=== PATIENT | female | born 1955 | race Caucasian/White ===

== ENCOUNTER 2018-11-19 14:01 | Emergency (ER) | payer BC, SELFPAY ==
[2018-11-19] VITALS (34 sets, daily range): BP systolic 88–111; BP diastolic 49–74; PULSE 60–74; RESP 8–23; TEMP 36.8; O2SAT 90–99
--- NOTE | 2018-11-19 14:40 | W.ED.GENAD ---
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 If you notice any worsening of your symptoms, or any new symptoms such as vomiting, diarrhea, fever, chills, shortness of breath, chest pain, numbness, weakness, or fainting , please return immediately to the emergency department for reevaluation. Please follow up with your primary care provider as soon as possible for reassessment and reevaluation. As always, it was a pleasure participating in your medical care today. Discharge Data Discharge Date/Time-TO BE ENTERED AT DEPARTURE: 11/19/18 20:05 Medical Decision Making <Ganga Chiu MD - Last Filed: 11/19/18 14:42> ECG Data Attestation: I personally reviewed and interpreted this ECG (s) as follows: Prior ECG tracings: not available for review Interpretation: sinus rhythm, rate of 70, pr 174, no acute st t wave ischemic findings <Catalino Faria NP - Last Filed: 11/24/18 11:35> Patient presenting to the emergency department for chief complaint of generalized malaise, not feeling well, and very slight abdominal discomfort. Patient reports on evening she had a funny tasting beef for dinner and then and about 6 hours or so she developed diffuse hives. These self resolved except for occasional intermittent persistent hives that she shows me are on her right shoulder. Patient otherwise states some GI discomfort since this episode and not feeling well. 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 Patient denies fever or chills focal abdominal tenderness, or vomiting. She does report to staff development coordinator rn upon check-in that she had chest pain and was worried about silent AL. 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 She does state that approximately 2 weeks ago she had bilateral lower extremity edema that seems to have resolved but that was odd for her. Physical exam shows a small single area that appears like a hive on left shoulder, clear lung sounds with no wheezing, stridor, normal cardiac exam, obese but nontender abdomen with normal active bowel sounds, no peritoneal findings, nonsurgical abdomen. Patient has no lower extremity edema. Given patient reporting to staff development coordinator rn I do feel that EKG and ACS work-up is appropriate. Patient does state concern for alpha gal reaction to eating meat to given that she had reported hives approximately 6 hours after eating beef. Plan to check labs, give IV access, chest x-ray. Patient otherwise states that when she has generalized malaise and has presented to the emergency department there is no treatment that helps her except for alternative medicine. Initial review of labs is non-worrisome and shows only a very mildly low albumin otherwise negative initial troponin, BNP within normal limits, normal chest x-ray, please see below for attending physician interpretation of EKG which is non-worrisome. Did speak to patient about allergic reaction and possible alpha gal reaction that she is concerned about given eating beef and 6 hours later developing hives. She states that she Frank contacted her primary care provider who was willing to call in a prescription for a EpiPen. At this time I see no acute signs of anaphylactic reaction. Patient states that she will fill this at the pharmacy and is not concerned about getting one in the emergency department. Otherwise patient was encouraged to avoid intake of beef products until further testing can be done which she states she will get at her primary care office. Plan to do a second troponin for full evaluation of patient's complaint of chest pain but otherwise patient remained stable. <Jose Contreras, - Last Filed: 11/20/18 11:34> Case was signed out to me by my colleague Catalino Faria. Repeat serial troponins were within normal limits, repeat EKG was unchanged. Patient continues to remain asymptomatic at this time and feels very well. Bedside limited cardiac echocardiogram demonstrates minimal trace pericardial effusion, no evidence of pericardial tamponade whatsoever. Ejection fraction appears to be within normal limits. No significant abnormality noted on limited bedside echocardiogram. Chest x-ray results demonstrate no acute finding per virtual radiology. Patient's vital signs remain normal with normal oxygenation, no tachycardia, no hypotension. Although oxygen saturations were initially documented at 90% and 92%, this is an accurate. I spent over an hour and a half in the room with the patient discussing her work-up, findings, and various etiologies of her symptoms, and during that time the patient's O2 saturations remain consistently between 95 and 99%. We did get an incentive spirometer, and she demonstrated notable and excellent lung volumes greater than 1 L. Physical exam continues to demonstrate no signs of anaphylaxis, and unremarkable abdominal exam, no edema of her lower extremities, no evidence of significant right heart strain on laboratory or cardiac work-up, no signs of hemodynamic compromise. At this time the patient signs and symptoms are clinically inconsistent with ACS, massive PE, pneumothorax, severe pneumonia, arteries, respiratory failure, anaphylaxis, life-threatening abdominal pathology, or life-threatening cardiac pathology. 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 We discussed alternative treatments, prolonged stays in various other forms of work-up, and together respecting the patient's wishes we feel that she is notably clinically safe for discharge with prompt follow-up. Spent a long time discussing with the patient reason for which to immediately return, and addressed all concerns that were brought up. I have extensively reviewed the treatment plan and discharge instructions with the patient. I have addressed all patient concerns at this time. The patient was made aware of what symptoms to monitor for that would warrant a return to the emergency department. Discussed the plan with the patient, they demonstrate verbal understanding and agreement with our assessment and plan at this time. EKG 14: 13 Rate 70, intervals normal, sinus rhythm, nonspecific T wave abnormality in V1 V2, with slight inversion. Questionable minimal Q waves in lead III. Findings are unchanged COMPARISON: No relevant prior studies available. FINDINGS: Lungs: No significant consolidation. Pleural space: No pleural effusion. No pneumothorax. Heart/Mediastinum: No significant cardiomegaly. Bones/joints: Unremarkable for age. IMPRESSION: No acute findings. Dictated and Authenticated by: Stuart Asif MD. Ordering:AMRIK Bae MD HPI <Ganga Chiu MD - Last Filed: 11/19/18 14:42> General Date/Time Provider Initiated Documentation: 11/19/18 14:02. <Catalino Faria NP - Last Filed: 11/24/18 11:35> General Mode of arrival: ambulatory. Limitations to Documentation: no limitations. Information obtained by: patient and RN notes reviewed. History of Present Illness 62 year old F presents to the emergency department with the chief complaint of Generalized malaise, abdominal pain, described as mild, with intensity rated at 1. Quality is described as aching, and is localized to the abdomen. Patient started experiencing this day(s) (3) and it has been constant. No relieving factors improve symptom(s), Other factors that worsen symptoms (Eating red meat) . Patient did receive the following treatments prior to arrival, none General Stated Complaint: Chest Pain KEN: 3 <Catalino Faria NP - Last Filed: 11/24/18 11:35> Constitutional Reports body ache(s), Denies chills, Denies fever(s), Denies headache(s) and Reports malaise ENT Denies headache(s) Cardiovascular Denies chest pain, Denies syncope, Reports pedal edema (Now resolved) and Denies dyspnea Respiratory Reports cough (dry) and Denies dyspnea Gastrointestinal Reports abdominal pain, Reports diarrhea, Denies nausea and Denies vomiting Integumentary/Breasts Reports rash Neurologic Denies syncope, Denies headache(s) and Reports other (Denies focal neurological change) [facility] <Ganga Chiu MD - Last Filed: 11/19/18 14:42> Social History Smoking/Tobacco Use Status: Never Do you feel safe at home: Yes Do you feel safe in your relationship?: Yes <Catalino Faria NP - Last Filed: 11/24/18 11:35> Const General: cooperative, no acute distress, not diaphoretic and not ill appearing Orientation: alert, awake and oriented x3 Neck Neck: normal visual inspection, full ROM, trachea midline, supple and no anterior neck swelling Carotids: normal carotid upstroke and no bruits Resp Effort & Inspection: normal respiratory effort, able to speak in complete sentences and stridor Auscultation: clear to auscultation bilaterally Cardio Rate: regular rate Rhythm: regular rhythm Heart Sounds: S1 normal, S2 normal, no click, no gallops, no murmurs and no rubs Bruits: no abdominal aortic bruits and no carotid bruits GI Inspection: normal to inspection and obesity Palpation: soft, no aortic enlargement, no pulsatile masses and nontender Auscultation: normal bowel sounds Back/Spine/Pelvis Back: no CVA tenderness Skin General skin exam: other (Small hive noted to left shoulder) Neuro General: alert, awake, oriented x3, tone normal and moves all extremities <Catalino Faria NP - Last Filed: 11/24/18 11:35> Vital Signs Temperature 36.8 C 11/19/18 14:05 Pulse 70 11/19/18 14:05 Blood Pressure 109/74 11/19/18 14:05 Temperature 36.8 C 11/19/18 14:05 Temperature Source Temporal Artery Scan 11/19/18 14:05 Pulse 70 11/19/18 14:05 Blood Pressure 109/74 11/19/18 14:05 Blood Pressure Position Supine 11/19/18 14:05 Oxygen Delivery Method Room Air 11/19/18 14:05 Oxygen Flow Rate 0 11/19/18 14:05 Sign Out <Ganga Chiu MD - Last Filed: 11/19/18 14:42> Sign Out Data: Sign Out Comment: Pending second troponin, reassessment, and any further treatment as needed patient signed out to Dr. Contreras. Last updated by Catalino Faria NP at 11/19/18 16:23
[2018-11-19 14:56] LABS: Abs Immature Grans 0.01 k/cumm (0.0-0.09); Absolute Basophil Count 0.04 k/cumm (0.0-0.2); Absolute Eosinophil Count 0.29 k/cumm (0.0-0.7); Absolute Lymphocyte Count 2.08 k/cumm (1.2-3.4); Absolute Monocyte Count 0.48 k/cumm (0.11-0.7); Absolute Neutrophil Count 3.66 k/cumm (1.2-6.7); Basophils % 0.6; Eosinophils % 4.4; HCT 39.5 % (36.0-46.0); HGB 13.4 g/dL (12.0-15.5); Immature Grans % 0.2; Lymphocytes % 31.7; Mean Corp. HGB Concentration 33.9 g/dL (32.0-36.0); Mean Corpuscular Hemoglobin 31.2 pg (27.0-33.0); Mean Corpuscular Volume 92.1 fL (80-95); Mean Platelet Volume 10.8 fL (8.0-11.0); Monocytes % 7.3; Neutrophils % 55.8; Platelet Count 250 x1000/uL (130-400); RBC 4.29 m/cumm (4.00-5.20); RBC Distribution Width 13.2 % (11.7-14.6); White Blood Cell Count 6.56 k/cumm (4.4-10.8)
--- NOTE | 2018-11-19 15:00 | DI.RAD_ITS ---
SYMPTOM/DIAGNOSIS: COUGH PA AND LATERAL CHEST: There are no prior comparison exams. The heart size is normal. There is no mediastinal widening. The lungs are reasonably well inflated and appear clear. Leads overlie the chest. IMPRESSION: Negative chest x-ray
[2018-11-19 15:10] LABS: INR 0.9 (0.9-1.1); PTT Activated 20.5 sec (21.0-31.4); Prothrombin Time 9.3 sec (9.3-11.0)
--- NOTE | 2018-11-19 15:13 | DI.VRAD_ITS ---
EXAM: XR Chest, 2 Views EXAM DATE/TIME: 11/19/2018 2:36 PM CLINICAL HISTORY: 52 years old, female; Cough TECHNIQUE: Imaging protocol: XR of the chest, 2 views. COMPARISON: No relevant prior studies available. FINDINGS: Lungs: No significant consolidation. Pleural space: No pleural effusion. No pneumothorax. Heart/Mediastinum: No significant cardiomegaly. Bones/joints: Unremarkable for age. IMPRESSION: No acute findings. Dictated and Authenticated by: Stuart Asif MD. Ordering:AMRIK Bae MD
[2018-11-19 15:51] LABS: ALT 43 U/L (12-78); AST 21 U/L (15-37); Albumin 3.3 g/dL (3.4-5.0); Alkaline Phosphatase 77 U/L (46-116); BUN 11 mg/dL (7-18); Bilirubin, Total 0.3 mg/dL (0.2-1.0); CREATININE 0.79 mg/dL (0.55-1.02); Calcium 8.7 mg/dL (8.5-10.1); Chloride 105 mmol/L (98-107); Glucose 96 mg/dL (70-100); NT-proBNP 189 pg/mL; Potassium 3.6 mmol/L (3.5-5.1); Sodium 143 mmol/L (136-145)
[2018-11-19 15:53] LABS: Troponin I < 0.05 ng/mL (0.00-0.06)
--- NOTE | 2018-11-19 16:10 | NUR.NOTE ---
urine sample collected Nursing Note:
[2018-11-19 16:17] LABS: Bilirubin Negative (Negative); Blood Negative (Negative); Clarity Clear; Glucose Negative (Negative); Ketones Negative (Negative); Leukocyte Esterase Negative (Negative); Nitrite Negative (Negative); Urobilinogen 0.2 EU/dL (Up TO 0.2)
[2018-11-19 19:27] LABS: Troponin I < 0.05 ng/mL (0.00-0.06)
== END 2018-11-19 20:05 | disposition home or self-care (01) ==
PROVIDERS: Nurse Practitioner Family; Emergency Provider Student in an Organized Health Care Education/Training Program
DX: R53.83 Other fatigue (principal); I31.3 Pericardial effusion (noninflammatory)
CPT/HCPCS: 36415; 80053; 93005; 99285; 71046; 81003; 83735; 83880; 84484; 85025; 85610; 85730; 93010